=== PATIENT | female | born 1960 | race African-American/Black ===

== ENCOUNTER 2021-12-09 15:12 | Observation (INO) ==
[2021-12-09] MEDS ORDERED: ZOFRAN INJ 4 MG VIAL IVP PRN (15:40)
--- NOTE | 2021-12-09 16:15 | DR.H&P ---
H&P History & Physical for Day of: H&P Date: 12/09/21 Chief Complaint Chief Complaint: worsening abdominal pain, black stool Allergies Allergies Allergy/AdvReac Type Severity Reaction Status Date / Time No Known Drug Allergies Allergy Verified 12/25/18 01:28 History of Present Illness History of Present Illness: Ms. Arteaga is a 61y/o female with a PMH of HTN, DM, Chronic back pain due to DDD and OA, GERD and PUD presented with worsening abdominal pain, black stool and poor oral intake. She was seen in the ED on Tuesday for similar symptoms. Her labs were stable and she was given fluids and discharged on protonix. She presented to the clinic for follow up. She states her abdominal pain has gotten worse and she is not able to eat much. She has been eating chicken broth but continues to have nausea and severe epigastric pain. She also reports black tarry stools and intermittent constipation. Her last BM was earlier today. She has a hx of PUD, EGD over 15 years ago for similar symptoms. Denies NSAID use recently. Plan: direct admit to med surg, consult GI for possible EGD in the AM. Check CBC, CMP, INR,FOBT. Start gentle hydration, IV Protonix and zofran prn. Start clears, NPO after midnight. Resume home medications. Monitor AM labs. Past Medical History Past Medical History: Diabetes, GERD and Hypertension Past Surgical History Surgical History: Cholecystectomy and Hysterectomy Family History Family Medical History: Diabetes Mellitus, [place], Heart Failure and Hypertension Social History Prescription drug monitoring program results: PDMP reviewed and no concerns identified Medications Home Medications: No Known Drug Allergies Allergy (Verified 12/25/18 01:28) Labs Result Diagrams: 12/10/21 03:34 12/10/21 03:34 Review of Systems Constitutional: Weakness Eyes: No Symptoms Reported ENT: No Symptoms Reported Respiratory: No Symptoms Reported Cardiovascular: No Symptoms Reported Gastrointestinal: Nausea, Vomiting, Abdominal Pain and Melena Genitourinary: No Symptoms Reported Musculoskeletal: No Symptoms Reported Skin: No Symptoms Reported Neurological: No Symptoms Reported Physical Exam Vital Signs: Blood Pressure [Left Arm] 163/97 Blood Pressure 144/87 Oriented: Normal Eyes: Normal Ear: Normal Nose: Normal Throat: Normal Respiratory: Clear Throughout Cardiovascular: Normal Auscultation: Bowel Sounds: Normal Tenderness: Epigastric, Periumbilical and Moderate; negative Rigidity Skin: Decreased Turgur Musculoskeletal: Normal Psychiatric: Anxiety Mood Description: Calm Affect: Anxious Speech Pattern: Clear and Appropriate Assessment/Plan (1) Epigastric pain: Status: Acute (2) GI bleed: Qualifiers: GI bleed type/associated pathology: melena Qualified Code(s): K92.1 - Melena Status: Acute (3) Dehydration: Status: Acute (4) HTN (hypertension): Qualifiers: Hypertension type: primary hypertension Qualified Code(s): I10 - Essential (primary) hypertension Status: Acute (5) Diabetes: Qualifiers: Diabetes mellitus complication status: without complication 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
[2021-12-09] MEDS: PROTONIX INJ 40 MG VIAL IVP SCH ×2 (17:33→20:45)
[2021-12-09] MEDS: NS 1,000 ML IV 1,000 ML IV SCH (17:33)
[2021-12-09] MEDS ORDERED: GLUCOPHAGE ONE (17:37)
[2021-12-09] MEDS: NovoLIN R (or HumuLIN R) SC PRN (17:38)
[2021-12-09] MEDS: GLUCOPHAGE PO SCH (17:39)
[2021-12-09 17:48] LABS: BASOPHILS # (AUTO) 0.1 X10^3/uL (0.0-0.1); BASOPHILS % (AUTO) 1.1 % (0.2-1.0); EOSINOPHILS # (AUTO) 0.1 x10^3/uL (0.0-0.2); EOSINOPHILS % (AUTO) 1.5 % (0.9-2.9); HEMATOCRIT 40.4 % (36.0-47.0); HEMOGLOBIN 13.5 g/dL (12.0-16.0); LYMPHOCYTES # (AUTO) 1.9 X10^3/uL (1.3-2.9); LYMPHOCYTES % (AUTO) 32.2 % (21.0-51.0); MEAN CORPUSCULAR HGB CONC 33.4 g/dL (33.0-35.0); MEAN CORPUSCULAR VOLUME 80.9 fL (80.0-100.0); MEAN PLATELET VOLUME 10.8 fL (7.4-11.0); MONOCYTES # (AUTO) 0.4 x10^3/uL (0.3-0.8); NEUTROPHILS # (AUTO) 3.4 x10^3/uL (2.2-4.8); NEUTROPHILS % (AUTO) 58.2 % (42.0-75.0); RED CELL DISTRIBUTION WIDTH 13.2 % (11.6-16.5); WHITE BLOOD COUNT 5.8 X10^3/uL (3.6-10.0)
[2021-12-09 18:29] LABS: ASPARTATE AMINO TRANSFERASE 13 Units/L (15-37); BLOOD UREA NITROGEN 23 mg/dL (7-18); CALCIUM 9.3 mg/dL (8.5-10.1); CARBON DIOXIDE 24.6 mmol/L (21-32); CHLORIDE 97 mmol/L (98-107); COR NA(FOR HYPERGLY) 137 mmol/L (136-145); CREATININE 1.07 mg/dL (0.55-1.02); SODIUM 132 mmol/L (136-145); eGFR NON BLACK RACES 55 (>60)
[2021-12-09 18:30] LABS: ALANINE AMINOTRANSFERASE 14 Units/L (12-78); ALBUMIN 3.6 g/dL (3.4-5.0); ALKALINE PHOSPHATASE 114 Units/L (46-116); TOTAL PROTEIN 7.8 g/dL (6.4-8.2)
[2021-12-09 18:34] LABS: PLATELET MORPHOLOGY COMMENT ABNORMAL (NORMAL)
[2021-12-09 18:35] LABS: GIANT PLATELET RARE
[2021-12-09] MEDS ORDERED: POTASSIUM CHL 60 MEQ/NS 0.45% 500 ML IV PRN (19:26)
[2021-12-09] MEDS ORDERED: KLOR-CON PO PRN (19:26)
[2021-12-09] MEDS ORDERED: POTASSIUM CHL 40 MEQ/NS 0.45% 500 ML IV PRN (19:26)
[2021-12-09] MEDS ORDERED: POTASSIUM CHLORIDE LIQ 20 MEQ UDC PO PRN (19:26)
[2021-12-09] MEDS ORDERED: K-DUR TAB 20 MEQ PO PRN (19:26)
[2021-12-09] MEDS ORDERED: MICRO K EXTEN CAP 10 MEQ PO PRN (19:26)
[2021-12-09] MEDS: PERCOCET TAB 5/325 MG PO PRN (20:47)
[2021-12-10] MEDS: MAGNESIUM SULFATE 1 GRAM/100 mL PREMIX 1 G/100 ML BAG IV PRN (01:56)
[2021-12-10 04:50] LABS: BASOPHILS % (AUTO) 0.6 % (0.2-1.0); EOSINOPHILS # (AUTO) 0.2 x10^3/uL (0.0-0.2); HEMATOCRIT 35.7 % (36.0-47.0); HEMOGLOBIN 11.8 g/dL (12.0-16.0); LYMPHOCYTES # (AUTO) 2.6 X10^3/uL (1.3-2.9); LYMPHOCYTES % (AUTO) 39.5 % (21.0-51.0); MEAN CORPUSCULAR HEMOGLOBIN 26.6 pg (27.0-34.0); MEAN CORPUSCULAR HGB CONC 33.1 g/dL (33.0-35.0); MEAN CORPUSCULAR VOLUME 80.5 fL (80.0-100.0); MEAN PLATELET VOLUME 10.9 fL (7.4-11.0); MONOCYTES # (AUTO) 0.6 x10^3/uL (0.3-0.8); MONOCYTES % (AUTO) 9.4 % (0.0-13.0); NEUTROPHILS # (AUTO) 3.1 x10^3/uL (2.2-4.8); NEUTROPHILS % (AUTO) 47.5 % (42.0-75.0); RED BLOOD COUNT 4.44 X10^6/uL (3.5-5.4); RED CELL DISTRIBUTION WIDTH 13.6 % (11.6-16.5); WHITE BLOOD COUNT 6.5 X10^3/uL (3.6-10.0)
[2021-12-10 05:07] LABS: ALANINE AMINOTRANSFERASE 12 Units/L (12-78); ALKALINE PHOSPHATASE 89 Units/L (46-116); ASPARTATE AMINO TRANSFERASE 14 Units/L (15-37); BLOOD UREA NITROGEN 18 mg/dL (7-18); CALCIUM 8.7 mg/dL (8.5-10.1); CARBON DIOXIDE 26.1 mmol/L (21-32); CHLORIDE 100 mmol/L (98-107); COR CA(FOR HYPOALB) 9.5 mg/dL (8.5-10.1); COR NA(FOR HYPERGLY) 136 mmol/L (136-145); CREATININE 0.86 mg/dL (0.55-1.02); SODIUM 133 mmol/L (136-145); TOTAL PROTEIN 6.5 g/dL (6.4-8.2); eGFR NON BLACK RACES > 60 (>60)
[2021-12-10] MEDS: K-RIDER 10 MEQ/NS 100 ML 10 MEQ/100 ML BAG IV PRN ×2 (05:41→07:26)
[2021-12-10] MEDS: NS 1,000 ML IV 1,000 ML IV SCH ×2 (05:41→09:54)
[2021-12-10] MEDS: GLUCOPHAGE PO SCH ×2 (06:06→17:00)
[2021-12-10] MEDS: PROTONIX INJ 40 MG VIAL IVP SCH ×2 (08:15→20:24)
[2021-12-10] MEDS ORDERED: LR 1,000 ML IV 1,000 ML IV ONE (09:52)
[2021-12-10] MEDS ORDERED: NS 1,000 ML IV 1,000 ML ONE (09:53)
[2021-12-10] MEDS ORDERED: DIPRIVAN VIAL 20 ML ONE (09:59)
--- NOTE | 2021-12-10 09:59 | PCM.PROG ---
Progress Note Progress Note for Day of Date of Exam: 12/10/21 Subjective Subjective: Patient seen at bedside, no events overnight. She feels slightly better, abdominal pain is not as severe. She did have a BM overnight, not as dark as it was before. She is currently NPO for possible EGD. She still has nausea, some improvement with zofran. Labs reviewed - Hgb 11.8 Plan: GI consulted for EGD, plan for today. Continue NPO. Continue hydration with IVF, replace K as per protocol. Continue zofran prn. Resume home medications after procedure. Monitor labs. Past Medical Family Social History Past Med/Fam/Surg Hx: No changes since H&P Allergies: Allergies No Known Drug Allergies Allergy (Verified 12/25/18 01:28) Review of Systems ROS: No change since H&P Vital Signs and I&O's Vital Signs: Temperature 98.5 F Pulse Rate 75 Respiratory Rate 12 Blood Pressure [Left Arm] 163/97 Blood Pressure 132/72 O2 Sat by Pulse Oximetry 98 Intake and Output: Intake & Output 12/07/21 12/08/21 12/09/21 12/10/21 23:59 23:59 23:59 23:59 Intake Total 821 / 821 506 / 506 Balance 821 / 821 506 / 506 Physical Exam Oriented: Normal Eyes: Normal Ear: Normal Nose: Normal Throat: Normal Respiratory: Normal Cardiovascular: Normal Auscultation: Bowel Sounds: Normal Tenderness: Epigastric, Periumbilical and Mild; negative Rigidity Skin: Normal Musculoskeletal: Normal Psychiatric: Normal Mood Description: Calm Affect: Normal Speech Pattern: Clear and Appropriate Laboratory and Diagnostics Result Diagrams: 12/10/21 03:34 12/10/21 03:34 Labs: Laboratory WBC 6.5 X10^3/uL (3.6-10.0) 12/10/21 03:34 RBC 4.44 X10^6/uL (3.5-5.4) 12/10/21 03:34 Hgb 11.8 g/dL (12.0-16.0) L 12/10/21 03:34 Hct 35.7 % (36.0-47.0) L 12/10/21 03:34 MCV 80.5 fL (80.0-100.0) 12/10/21 03:34 MCH 26.6 pg (27.0-34.0) L 12/10/21 03:34 MCHC 33.1 g/dL (33.0-35.0) 12/10/21 03:34 RDW 13.6 % (11.6-16.5) 12/10/21 03:34 Plt Count 206 X10^3/uL (150.0-450.0) 12/10/21 03:34 Plt Count Comment Adequate (ADEQUATE) 12/09/21 17:30 MPV 10.9 fL (7.4-11.0) 12/10/21 03:34 Neut % (Auto) 47.5 % (42.0-75.0) 12/10/21 03:34 Lymph % (Auto) 39.5 % (21.0-51.0) 12/10/21 03:34 [facility] % (Auto) 9.4 % (0.0-13.0) 12/10/21 03:34 Eos % (Auto) 3.0 % (0.9-2.9) H 12/10/21 03:34 Baso % (Auto) 0.6 % (0.2-1.0) 12/10/21 03:34 Neut # (Auto) 3.1 x10^3/uL (2.2-4.8) 12/10/21 03:34 Lymph # (Auto) 2.6 X10^3/uL (1.3-2.9) 12/10/21 03:34 [facility] # (Auto) 0.6 x10^3/uL (0.3-0.8) 12/10/21 03:34 Eos # (Auto) 0.2 x10^3/uL (0.0-0.2) 12/10/21 03:34 Baso # (Auto) 0.0 X10^3/uL (0.0-0.1) 12/10/21 03:34 Absolute Nucleated RBC 0.0 /100WBC 12/10/21 03:34 Giant Platelets Rare 12/09/21 17:30 Plt Morphology Comment Abnormal (NORMAL) A 12/09/21 17:30 RBC Morphology Normal (NORMAL) 12/09/21 17:30 PT 13.0 SECONDS (11.8-14.3) 12/09/21 17:30 INR Target Range - 12/09/21 17:30 INR 1.01 (0.8-1.3) 12/09/21 17:30 Sodium 133 mmol/L (136-145) L 12/10/21 03:34 Corrected Sodium 136 mmol/L (136-145) 12/10/21 03:34 Potassium 3.4 mmol/L (3.5-5.1) L 12/10/21 03:34 Chloride 100 mmol/L (98-107) 12/10/21 03:34 Carbon Dioxide 26.1 mmol/L (21-32) 12/10/21 03:34 BUN 18 mg/dL (7-18) 12/10/21 03:34 Creatinine 0.86 mg/dL (0.55-1.02) 12/10/21 03:34 Est GFR (MDRD) Af Amer > 60 (>60) 12/10/21 03:34 Est GFR (MDRD) Non-Af > 60 (>60) 12/10/21 03:34 Glucose 218 mg/dL (65-99) H 12/10/21 03:34 POC Glucose (mg/dL) 183 mg/dL (65-99) H 12/09/21 20:06 Calcium 8.7 mg/dL (8.5-10.1) 12/10/21 03:34 Corrected Calcium 9.5 mg/dL (8.5-10.1) 12/10/21 03:34 Magnesium 1.6 mg/dL (1.7-2.9) L 12/09/21 17:30 Total Bilirubin 0.40 mg/dL (0.2-1.0) 12/10/21 03:34 AST 14 Units/L (15-37) L 12/10/21 03:34 ALT 12 Units/L (12-78) 12/10/21 03:34 Alkaline Phosphatase 89 Units/L (46-116) 12/10/21 03:34 Total Protein 6.5 g/dL (6.4-8.2) 12/10/21 03:34 Albumin 3.0 g/dL (3.4-5.0) L 12/10/21 03:34 Globulin 3.5 g/dL (2.5-4.5) 12/10/21 03:34 Albumin/Globulin Ratio 0.9 Ratio (1.1-2.1) L 12/10/21 03:34 Stool Description 35 grams 12/09/21 20:30 Stl Occult Blood (IFOB) Negative (NEGATIVE) 12/09/21 20:30 SARS-CoV-2 (PCR) Negative (NEGATIVE) 12/09/21 17:06 Plan (1) Epigastric pain: Status: Acute (2) GI bleed: Status: Acute Qualifiers: GI bleed type/associated pathology: melena Qualified Code(s): K92.1 - Melena (3) Dehydration: Status: Acute (4) HTN (hypertension): Status: Acute Qualifiers: Hypertension type: primary hypertension Qualified Code(s): I10 - Essential (primary) hypertension (5) Diabetes: Status: Acute Qualifiers: Diabetes mellitus complication status: without complication Diabetes mellitus care home insulin use: without care home use Diabetes mellitus type: type 2 Qualified Code(s): E11.9 - Type 2 diabetes mellitus without co mplications (6) Chronic pain syndrome: Status: Acute (7) DDD (degenerative disc disease): Status: Acute Qualifiers: Spinal region: lumbosacral Qualified Code(s): M51.37 - Other intervertebral disc degeneration, lumbosacral region
[2021-12-10] MEDS ORDERED: ZESTRIL TAB 20 MG ONE (12:31)
[2021-12-10] MEDS: ZESTRIL TAB 20 MG PO SCH (12:33)
[2021-12-10] MEDS: NORVASC TAB 10 MG PO SCH (15:29)
[2021-12-10] MEDS ORDERED: GLUCOPHAGE ONE (16:56)
[2021-12-10] MEDS: NovoLIN R (or HumuLIN R) SC PRN ×2 (17:01→20:25)
[2021-12-10 19:13] VITALS: BMI 25.0
[2021-12-10] MEDS ORDERED: RESTORIL CAP 15 MG PO PRN (22:50)
[2021-12-11 05:01] LABS: BASOPHILS % (AUTO) 0.7 % (0.2-1.0); EOSINOPHILS # (AUTO) 0.2 x10^3/uL (0.0-0.2); EOSINOPHILS % (AUTO) 2.8 % (0.9-2.9); HEMATOCRIT 37.8 % (36.0-47.0); HEMOGLOBIN 12.5 g/dL (12.0-16.0); LYMPHOCYTES # (AUTO) 2.1 X10^3/uL (1.3-2.9); LYMPHOCYTES % (AUTO) 37.2 % (21.0-51.0); MEAN CORPUSCULAR HEMOGLOBIN 26.7 pg (27.0-34.0); MONOCYTES # (AUTO) 0.4 x10^3/uL (0.3-0.8); MONOCYTES % (AUTO) 7.7 % (0.0-13.0); NEUTROPHILS % (AUTO) 51.6 % (42.0-75.0); RED BLOOD COUNT 4.67 X10^6/uL (3.5-5.4); RED CELL DISTRIBUTION WIDTH 13.3 % (11.6-16.5); WHITE BLOOD COUNT 5.7 X10^3/uL (3.6-10.0)
[2021-12-11 05:32] LABS: ALANINE AMINOTRANSFERASE 12 Units/L (12-78); ALKALINE PHOSPHATASE 108 Units/L (46-116); ASPARTATE AMINO TRANSFERASE 13 Units/L (15-37); BLOOD UREA NITROGEN 10 mg/dL (7-18); CALCIUM 8.4 mg/dL (8.5-10.1); CHLORIDE 101 mmol/L (98-107); COR CA(FOR HYPOALB) 9.2 mg/dL (8.5-10.1); COR NA(FOR HYPERGLY) 139 mmol/L (136-145); CREATININE 0.85 mg/dL (0.55-1.02); LIPASE 52 Units/L (73-393); MAGNESIUM 1.4 mg/dL (1.7-2.9); SODIUM 136 mmol/L (136-145); TOTAL PROTEIN 6.7 g/dL (6.4-8.2); eGFR NON BLACK RACES > 60 (>60)
[2021-12-11] MEDS ORDERED: GLUCOPHAGE ONE (05:41)
[2021-12-11] MEDS: MAGNESIUM SULFATE 1 GRAM/100 mL PREMIX 1 G/100 ML BAG IV PRN ×3 (05:43→08:59)
[2021-12-11] MEDS: NovoLIN R (or HumuLIN R) SC PRN (05:44)
[2021-12-11] MEDS: PERCOCET TAB 5/325 MG PO PRN (05:44)
[2021-12-11] MEDS: GLUCOPHAGE PO SCH (06:21)
[2021-12-11] MEDS ORDERED: ZESTRIL TAB 20 MG ONE (08:00)
[2021-12-11] MEDS: PROTONIX INJ 40 MG VIAL IVP SCH (08:19)
[2021-12-11] MEDS: ZESTRIL TAB 20 MG PO SCH (08:19)
[2021-12-11] MEDS: NORVASC TAB 10 MG PO SCH (08:19)
[2021-12-11] MEDS ORDERED: GLUCOTROL PO SCH (09:00)
--- NOTE | 2021-12-11 09:24 | W.DIS.FURT ---
Summary of Discharge Discharge Summary of Date Date of Exam: 12/11/21 Admission Date Date of Admission: 12/09/21 Admission Diagnosis Hospital Course: Ms. Arteaga is a 61y/o female with a PMH of HTN, DM, Chronic back pain due to DDD and OA, GERD and PUD presented with worsening abdominal pain, black stool and poor oral intake. She was seen in the ED on Tuesday for similar symptoms. Her labs were stable and she was given fluids and discharged on protonix. She presented to the clinic for follow up. She states her abdominal pain has gotten worse and she is not able to eat much. She has been eating chicken broth but continues to have nausea and severe epigastric pain. She also reports black tarry stools and intermittent constipation. Her last BM was earlier today. She has a hx of PUD, EGD over 15 years ago for similar symptoms. Denies NSAID use recently. She was directly admitted to [facility] surgery for further management. She was started on hydration with IVF, IV protonix and zofran. GI was consulted for EGD. Patient remained on clears and was kept NPO after midnight for EGD the next day. Her labs were monitored and electrolytes replaced as needed. EGD showed erosive gastritis and hiatal hernia. She was able to tolerate oral intake. She will need an outpatietn colonoscopy and needs to f/u with Dr Rdz. She was ambulating in the room and felt a lot better. She was stable for discharge. She will follow up with GI and PCP as scheduled. Discussed with patient to stop taking NSAIDs. Vital Signs: Vital Signs (72 hours) 12/09/21 20:00 12/09/21 20:47 12/09/21 21:30 Temperature 98.4 F Pulse Rate 89 82 Respiratory Rate 12 14 17 Blood Pressure 135/79 O2 Sat by Pulse Oximetry 98 98 12/09/21 21:45 12/09/21 21:47 12/09/21 22:00 Temperature Pulse Rate 79 82 Respiratory Rate 15 12 15 Blood Pressure O2 Sat by Pulse Oximetry 99 98 12/09/21 22:15 12/09/21 22:30 12/09/21 22:45 Temperature Pulse Rate 82 80 82 Respiratory Rate 14 14 14 Blood Pressure O2 Sat by Pulse Oximetry 97 98 98 12/09/21 23:00 12/09/21 23:15 12/09/21 23:30 Temperature Pulse Rate 81 82 89 Respiratory Rate 14 13 17 Blood Pressure O2 Sat by Pulse Oximetry 97 96 99 12/09/21 23:31 12/09/21 23:45 12/10/21 00:00 Temperature 98.5 F Pulse Rate 83 81 85 Respiratory Rate 15 13 15 Blood Pressure 143/82 143/82 O2 Sat by Pulse Oximetry 99 99 99 12/10/21 00:15 12/10/21 00:30 12/10/21 00:45 Temperature Pulse Rate 71 75 74 Respiratory Rate 11 L 16 16 Blood Pressure O2 Sat by Pulse Oximetry 98 97 98 12/10/21 01:00 12/10/21 01:15 12/10/21 01:30 Temperature Pulse Rate 78 80 83 Respiratory Rate 27 H 27 H 13 Blood Pressure O2 Sat by Pulse Oximetry 97 96 98 12/10/21 01:45 12/10/21 02:00 12/10/21 02:15 Temperature Pulse Rate 79 77 76 Respiratory Rate 17 13 18 Blood Pressure O2 Sat by Pulse Oximetry 98 98 98 12/10/21 02:30 12/10/21 02:45 12/10/21 03:00 Temperature Pulse Rate 76 79 73 Respiratory Rate 14 13 14 Blood Pressure O2 Sat by Pulse Oximetry 99 98 98 12/10/21 03:15 12/10/21 03:30 12/10/21 03:45 Temperature Pulse Rate 69 72 69 Respiratory Rate 13 14 13 Blood Pressure O2 Sat by Pulse Oximetry 99 99 98 12/10/21 03:49 12/10/21 04:00 12/10/21 04:15 Temperature 98.5 F Pulse Rate 75 75 72 Respiratory Rate 19 16 15 Blood Pressure 132/72 132/72 O2 Sat by Pulse Oximetry 97 98 98 12/10/21 04:30 12/10/21 04:45 12/10/21 05:00 Temperature Pulse Rate 76 79 76 Respiratory Rate 14 14 14 Blood Pressure O2 Sat by Pulse Oximetry 97 95 96 12/10/21 05:15 12/10/21 05:30 12/10/21 05:45 Temperature Pulse Rate 79 79 72 Respiratory Rate 15 16 18 Blood Pressure O2 Sat by Pulse Oximetry 96 96 98 12/10/21 06:00 12/10/21 06:15 12/10/21 06:30 Temperature Pulse Rate 80 79 75 Respiratory Rate 13 14 14 Blood Pressure O2 Sat by Pulse Oximetry 98 99 99 12/10/21 06:45 12/10/21 07:00 12/10/21 07:15 Temperature Pulse Rate 82 80 79 Respiratory Rate 42 H 16 29 H Blood Pressure O2 Sat by Pulse Oximetry 99 99 99 12/10/21 07:30 12/10/21 07:45 12/10/21 08:00 Temperature Pulse Rate 72 75 77 Respiratory Rate 15 14 16 Blood Pressure O2 Sat by Pulse Oximetry 97 98 97 12/10/21 08:15 12/10/21 08:30 12/10/21 08:45 Temperature Pulse Rate 79 90 75 Respiratory Rate 17 24 12 Blood Pressure O2 Sat by Pulse Oximetry 99 97 98 12/10/21 09:00 12/10/21 09:15 12/10/21 09:30 Temperature Pulse Rate 69 75 81 Respiratory Rate 14 18 17 Blood Pressure O2 Sat by Pulse Oximetry 98 98 97 12/10/21 10:18 12/10/21 10:20 12/10/21 10:30 Temperature Pulse Rate 81 82 88 Respiratory Rate 23 Blood Pressure 144/70 O2 Sat by Pulse Oximetry 96 97 99 12/10/21 10:31 12/10/21 10:45 12/10/21 10:59 Temperature Pulse Rate 88 83 77 Respiratory Rate 20 28 H 25 H Blood Pressure 148/72 O2 Sat by Pulse Oximetry 99 97 92 L 12/10/21 11:00 12/10/21 11:01 12/10/21 11:15 Temperature Pulse Rate 76 76 Respiratory Rate 24 20 Blood Pressure 145/81 O2 Sat by Pulse Oximetry 98 99 12/10/21 11:30 12/10/21 11:45 12/10/21 12:00 Temperature Pulse Rate 87 79 79 Respiratory Rate 21 16 17 Blood Pressure 154/86 194/94 O2 Sat by Pulse Oximetry 98 99 98 12/10/21 12:15 12/10/21 12:30 12/10/21 12:45 Temperature Pulse Rate 75 77 74 Respiratory Rate 12 13 19 Blood Pressure 158/92 O2 Sat by Pulse Oximetry 96 98 99 12/10/21 13:00 12/10/21 13:15 12/10/21 13:30 Temperature Pulse Rate 81 79 79 Respiratory Rate 21 23 26 H Blood Pressure 155/84 O2 Sat by Pulse Oximetry 99 99 98 12/10/21 13:45 12/10/21 14:00 12/10/21 14:15 Temperature Pulse Rate 80 86 80 Respiratory Rate 18 26 H 19 Blood Pressure 196/101 O2 Sat by Pulse Oximetry 99 100 97 12/10/21 14:30 12/10/21 14:45 12/10/21 14:55 Temperature Pulse Rate 79 79 81 Respiratory Rate 18 11 L 28 H Blood Pressure 153/90 O2 Sat by Pulse Oximetry 98 99 99 12/10/21 15:00 12/10/21 15:15 12/10/21 15:32 Temperature Pulse Rate 82 82 85 Respiratory Rate 23 20 16 Blood Pressure 172/89 O2 Sat by Pulse Oximetry 97 100 97 12/10/21 15:45 12/10/21 16:00 12/10/21 16:15 Temperature Pulse Rate 81 78 77 Respiratory Rate 21 15 13 Blood Pressure 141/68 O2 Sat by Pulse Oximetry 97 97 97 12/10/21 16:30 12/10/21 16:45 12/10/21 17:00 Temperature Pulse Rate 75 77 Respiratory Rate 15 15 Blood Pressure O2 Sat by Pulse Oximetry 98 97 88 L 12/10/21 20:00 12/11/21 00:00 12/11/21 04:00 Temperature 98.7 F 97.9 F 97.7 F Pulse Rate 93 H 88 86 Respiratory Rate 20 22 20 Blood Pressure 130/71 139/73 138/63 O2 Sat by Pulse Oximetry 98 98 96 12/11/21 05:44 Temperature Pulse Rate Respiratory Rate 22 Blood Pressure O2 Sat by Pulse Oximetry Labs: Laboratory Last Values WBC 5.7 X10^3/uL (3.6-10.0) 12/11/21 03:30 RBC 4.67 X10^6/uL (3.5-5.4) 12/11/21 03:30 Hgb 12.5 g/dL (12.0-16.0) 12/11/21 03:30 Hct 37.8 % (36.0-47.0) 12/11/21 03:30 MCV 81.0 fL (80.0-100.0) 12/11/21 03:30 MCH 26.7 pg (27.0-34.0) L 12/11/21 03:30 MCHC 33.0 g/dL (33.0-35.0) 12/11/21 03:30 RDW 13.3 % (11.6-16.5) 12/11/21 03:30 Plt Count 228 X10^3/uL (150.0-450.0) 12/11/21 03:30 Plt Count Comment Adequate (ADEQUATE) 12/09/21 17:30 MPV 11.0 fL (7.4-11.0) 12/11/21 03:30 Neut % (Auto) 51.6 % (42.0-75.0) 12/11/21 03:30 Lymph % (Auto) 37.2 % (21.0-51.0) 12/11/21 03:30 [place] % (Auto) 7.7 % (0.0-13.0) 12/11/21 03:30 Eos % (Auto) 2.8 % (0.9-2.9) 12/11/21 03:30 Baso % (Auto) 0.7 % (0.2-1.0) 12/11/21 03:30 Neut # (Auto) 3.0 x10^3/uL (2.2-4.8) 12/11/21 03:30 Lymph # (Auto) 2.1 X10^3/uL (1.3-2.9) 12/11/21 03:30 [place] # (Auto) 0.4 x10^3/uL (0.3-0.8) 12/11/21 03:30 Eos # (Auto) 0.2 x10^3/uL (0.0-0.2) 12/11/21 03:30 Baso # (Auto) 0.0 X10^3/uL (0.0-0.1) 12/11/21 03:30 Absolute Nucleated RBC 0.0 /100WBC 12/11/21 03:30 Giant Platelets Rare 12/09/21 17:30 Plt Morphology Comment Abnormal (NORMAL) A 12/09/21 17:30 RBC Morphology Normal (NORMAL) 12/09/21 17:30 PT 13.0 SECONDS (11.8-14.3) 12/09/21 17:30 INR Target Range - 12/09/21 17:30 INR 1.01 (0.8-1.3) 12/09/21 17:30 Sodium 136 mmol/L (136-145) 12/11/21 03:30 Corrected Sodium 139 mmol/L (136-145) 12/11/21 03:30 Potassium 3.9 mmol/L (3.5-5.1) 12/11/21 03:30 Chloride 101 mmol/L (98-107) 12/11/21 03:30 Carbon Dioxide 22.0 mmol/L (21-32) 12/11/21 03:30 BUN 10 mg/dL (7-18) 12/11/21 03:30 Creatinine 0.85 mg/dL (0.55-1.02) 12/11/21 03:30 Est GFR (MDRD) Af Amer > 60 (>60) 12/11/21 03:30 Est GFR (MDRD) Non-Af > 60 (>60) 12/11/21 03:30 Glucose 220 mg/dL (65-99) H 12/11/21 03:30 POC Glucose (mg/dL) 235 mg/dL (65-99) H 12/10/21 20:03 Hemoglobin A1c 13.1 % 12/11/21 03:30 Calcium 8.4 mg/dL (8.5-10.1) L 12/11/21 03:30 Corrected Calcium 9.2 mg/dL (8.5-10.1) 12/11/21 03:30 Magnesium 1.4 mg/dL (1.7-2.9) L 12/11/21 03:30 Total Bilirubin 0.30 mg/dL (0.2-1.0) 12/11/21 03:30 AST 13 Units/L (15-37) L 12/11/21 03:30 ALT 12 Units/L (12-78) 12/11/21 03:30 Alkaline Phosphatase 108 Units/L (46-116) 12/11/21 03:30 Total Protein 6.7 g/dL (6.4-8.2) 12/11/21 03:30 Albumin 3.0 g/dL (3.4-5.0) L 12/11/21 03:30 Globulin 3.7 g/dL (2.5-4.5) 12/11/21 03:30 Albumin/Globulin Ratio 0.8 Ratio (1.1-2.1) L 12/11/21 03:30 Lipase 52 Units/L (73-393) L 12/11/21 03:30 Stool Description 35 grams 12/09/21 20:30 Stl Occult Blood (IFOB) Negative (NEGATIVE) 12/09/21 20:30 SARS-CoV-2 (PCR) Negative (NEGATIVE) 12/09/21 17:06 Tissue Pathology To follow 12/10/21 10:05 Reason For Visit: GI BLEED, ABD. PAIN Discharge Date Discharge Date: 12/11/21 Discharge Diagnosis All Active Problems (Updated 12/23/21 @ 15:55 by Veronica Salinas) Hiatal hernia (Acute) Erosive gastritis (Acute) DDD (degenerative disc disease) (Chronic) Chronic pain syndrome (Chronic) Diabetes (Chronic) HTN (hypertension) (Chronic) Dehydration (Acute) GI bleed (Acute) Plan of Treatment: Continue with present treatment and follow up plan. Pt is to keep follow up appointment as instructed and take medications as ordered. Discharge Medications Discharge Medications: No Known Drug Allergies Allergy (Verified 12/25/18 01:28) New Prescriptions amlodipine 10 mg PO DAILY 30 Days #30 tab 12/11/21 [Rx] glipizide 5 mg PO BID 30 Days #60 tab 12/11/21 [Rx] lisinopril 20 mg PO DAILY 30 Days #30 tab 12/11/21 [Rx] metformin 1,000 mg PO BIDWM 30 Days #60 tab 12/11/21 [Rx] pantoprazole 40 mg PO BID 30 Days #60 tab 12/11/21 [Rx] Follow up and Referral Follow Up: 1 Week (PCP) 1 Week (GI) Discharge Disposition Discharge Disposition: home Discharge Condition: Stable Discharge Plan Discharge Plan Hospital Course: Ms. Arteaga is a 61y/o female with a PMH of HTN, DM, Chronic back pain due to DDD and OA, GERD and PUD presented with worsening abdominal pain, black stool and poor oral intake. She was seen in the ED on Tuesday for similar symptoms. Her labs were stable and she was given fluids and discharged on protonix. She presented to the clinic for follow up. She states her abdominal pain has gotten worse and she is not able to eat much. She has been eating chicken broth but continues to have nausea and severe epigastric pain. She also reports black tarry stools and intermittent constipation. Her last BM was earlier today. She has a hx of PUD, EGD over 15 years ago for similar symptoms. Denies NSAID use recently. She was directly admitted to [facility] surgery for further management. She was started on hydration with IVF, IV protonix and zofran. GI was consulted for EGD. Patient remained on clears and was kept NPO after midnight for EGD the next day. Her labs were monitored and electrolytes replaced as needed. EGD showed erosive gastritis and hiatal hernia. She was able to tolerate oral intake. She will need an outpatietn colonoscopy and needs to f/u with Dr Rdz. She was ambulating in the room and felt a lot better. She was stable for discharge. She will follow up with GI and PCP as scheduled. Discussed with patient to stop taking NSAIDs. Patient Disposition: 01 HOME, SELF-CARE Condition: Stable Health Concerns: Post Hospitalization: new medications and changes needed to prevent readmission or further decline. Pt educated and given instructions on all concerns. Care Plan Goals: Problem: Fluid Volume Deficit Goal: Maintain/Improved Adequate hydration. Instructions: Follow provided instructions. Follow up with primary physician as directed. Contact primary care physician or report to the closest Emergency Room if condition worsens. Plan of Treatment: Continue with present treatment and follow up plan. Pt is to keep follow up appointment as instructed and take medications as ordered. Prescription drug monitoring program results: PDMP reviewed and no concerns identified Prescriptions: New metformin 1,000 mg tablet 1,000 mg PO BIDWM 30 Days Qty: 60 RF: 0 lisinopril 20 mg Tablet 20 mg PO DAILY 30 Days Qty: 30 RF: 0 amlodipine 10 mg Tablet 10 mg PO DAILY 30 Days Qty: 30 RF: 0 glipizide 5 mg Tablet 5 mg PO BID 30 Days Qty: 60 RF: 0 pantoprazole 40 mg tablet,delayed release (DR/EC) 40 mg PO BID 30 Days Qty: 60 RF: 1 Discontinued metronidazole 500 mg tablet 500 mg PO Q12H Qty: 14 RF: 0 ondansetron HCl [Zofran] 4 mg tablet 4 mg PO BID-TID PRN (Reason: nausea and vomiting) Qty: 14 RF: 0 tizanidine [Zanaflex] 4 mg tablet 4 mg PO TID PRN (Reason: muscle spasticity) Qty: 15 RF: 0 diclofenac sodium 75 mg tablet,delayed release (DR/EC) 75 mg PO BID Qty: 30 RF: 0 Orders to Discharge Patient Discharge Orders: Discharge (Routine); Ordered 12/11/21 Ordered By: Veronica Salinas Follow ups/Referrals Follow ups/Referrals: JENY RDZ [STAFF PHYSICIAN] - 12/24/21 1:10 pm Veronica Salinas [STAFF PHYSICIAN] - 12/18/21 11:30 am Instructions Instructions: Fall Prevention in the Home, Adult, [id number], Gastritis, Adult, Dhry-st-Sqzz, Type 2 Diabetes Mellitus, Self-Care, Adult, Ydbj-[id number]-Yjdy, Esophagitis, Upper Gastrointestinal Bleeding, Upper Endoscopy, Care After, Hiatal Hernia, Hypertension, Adult, Vcju-da-[id number], Gastrointestinal Bleeding, Yrjt-wu-Ones, [place] Diet Activity Restrictions/Additional Instructions: Hold all NSAID's - including Diclofenac Take only Tylenol for Pain [place] diet, avoid spicy foods as well as caffeine. May return to work on Tuesday. Stand Alone Forms: Excuse From Work or School, Precautions for COVID19, [facility], Patient Portal, Social Distancing Patient Education Addl Reference Links: Upper Gastrointestinal Bleeding [email or web address]
[2021-12-11 09:39] VITALS: BP 147/71
[2021-12-11] MEDS ORDERED: SNACK - Diabetic Appropriate PO SCH (20:00)
== END 2021-12-11 11:05 | disposition home or self-care (01) ==
LOC: MED/SURG → ICU 16:22
PROVIDERS: ADMIT Internal Medicine; ATTEND Internal Medicine
DX: Z12.11 Encounter for screening for malignant neoplasm of colon; K59.09 Other constipation; Z20.822 Contact with and (suspected) exposure to COVID-19; R10.84 Generalized abdominal pain; K21.00 Gastro-esophageal reflux disease with esophagitis, without bleeding; E11.65 Type 2 diabetes mellitus with hyperglycemia; K29.00 Acute gastritis without bleeding; M51.37 Other intervertebral disc degeneration, lumbosacral region; K44.9 Diaphragmatic hernia without obstruction or gangrene; I10 Essential (primary) hypertension; R10.12 Left upper quadrant pain; E86.0 Dehydration; R11.2 Nausea with vomiting, unspecified; K92.1 Melena; Z87.11 Personal history of peptic ulcer disease